=== PATIENT | male | born 1925 | race Caucasian/White ===

== ENCOUNTER 2016-11-13 13:09 | Observation (INO) | payer OTHER ==
[~2016-11-13] VITALS: Ht 170.2 cm; Wt 48.5 kg
--- NOTE | ~2016-11-13 | S ---
[facility] [place] [address] SURGICAL PATH RPT PROCEDURE Name: ARIADNA STEWART Room #: 444-P [facility] IN M.R.#: [id number] Admission: 11/13/16 Date of : [birth year] Discharge: 11/18/16 Report #: [id number] Path Case #: [id number] PATHOLOGY REPORT COLLECTION DATE: 11/14/2016 RECEIVED DATE: 11/14/2016 SUBMITTING PHYS: Dr. Gregor Rodriguez OTHER PHYS: Dr. Fred Chew SPECIMEN(S) RECEIVED: A.Liver bx x3 * * * * * * * * * * * * FINAL DIAGNOSIS: Liver, mass, needle core biopsy: - MODERATELY DIFFERENTIATED ADENOCARCINOMA. COMMENT: Examination shows an adenocarcinoma with a cribriform pattern. Multiple immunohistochemical stains are performed. (Block A1) CK7: non- reactive CK19: strongly reactive CK20: non-reactive CDX-2: non-reactive TTF-1: non-reactive within the tumor PSA: non-reactive PSAP: reactive PAX-8: reactive Villin: non- reactive CEA monoclonal: non-reactive Based on the immunohistochemical stains, a metastatic adenocarcinoma of prostatic origin cannot be excluded. The non-reactive immunohistochemical stains argue against a metastatic lung, colon and upper gastrointestinal tract origins. Cholangiocarcinoma as well as pancreatic adenocarcinoma usually are reactive to CK7, CK20 as well as monoclonal CEA. Therefore these are less likely; however are in the differential diagnosis for this malignancy. Clinical correlation is suggested. Co-review: Dr. Tolu Carmona Findings of this case are discussed with Dr. Amari Rodriguez at approximately 10:00 a.m. on 11/17/16. (IUV:mgr; 11/17/2016) PATHOLOGIST: Kelsy Valdez M.D. REPORT ELECTRONICALLY SIGNED BY: Kelsy Valdez M.D. [facility] [address] [place] [address] SURGICAL PATH RPT PROCEDURE Name: ARIADNA STEWART Room #: 444-P [facility] IN .R.#: [id number] Admission: 11/13/16 Date of : [birth year] Discharge: 11/18/16 Report #: [id number] Path Case #: [id number] DATE/TIME: 11/18/2016 15:09 * * * * * * * * * * * * GROSS PATHOLOGY: Received in formalin labeled "Ariadna Stewart, liver biopsy 3," are three distinct needle cores of white-allen to orange-10 soft tissue ranging from 1.4 to 2.0 cm in length, which are submitted entirely in cassette A1. (CAA; 11/15/2016) CLINICAL HISTORY: Weight loss, nausea, sore "tailbone", vomiting INITIAL CPT CODE(S): A; 81534, 24916, 39911, 54905, 37452, 45374, 73709, 43863, 30625, 14091, 08238 Professional services performed by [facility] at [facility] [address], [place] [address] Technical services performed by [facility] at [address] [place] [address], [address], [place] [address]. [facility] [address] [place] [address] PHONE: [phone] DIRECTOR: Mike Herrera M.D. * * * END OF REPORT * * *
[2016-11-13 13:10] VITALS: BP 108/68
[2016-11-13] MEDS ORDERED: ALEVE220 MG PO (13:37)
[2016-11-13 13:52] LABS: HEMATOCRIT 34.7 % (42.0-52.0); HEMOGLOBIN 11.5 gm/dL (14.0-18.0); MANUAL DIFF YES; MCH 28.9 pg (26.0-34.0); MCHC 33.1 g/dL (28.0-37.0); MCV 87.5 fL (80.0-100.0); PLATELET COUNT 440 thou/uL (150-400); RBC 3.96 mil/uL (4.50-6.00); RDW 16.2 % (10.5-14.5); WBC 6.7 thou/uL (4.0-11.0)
[2016-11-13 13:57] LABS: CALCIUM 9.2 mg/dL (8.5-10.1); CREATININE 1.6 mg/dL (0.7-1.3); POTASSIUM 3.7 mmol/L (3.5-5.1)
[2016-11-13 14:01] LABS: ALBUMIN 2.4 g/dL (3.4-5.0); TOTAL BILIRUBIN 0.5 mg/dL (<0.1-1.0); TOTAL PROTEIN 7.5 g/dL (6.4-8.2)
[2016-11-13 14:16] LABS: ABSOLUTE NEUTROPHILS 5.3 thou/uL (1.4-8.2); ANISOCYTOSIS 1+; TOTAL CELL COUNT 100
[2016-11-13 15:38] VITALS: BP 113/56
[2016-11-13 16:15] VITALS: BP 117/57
[2016-11-13] MEDS ORDERED: ONDANSETRON HCL4 M2 PO (16:52)
[2016-11-13] MEDS ORDERED: PROTONIX40 M1 PO (16:53)
[2016-11-13] MEDS ORDERED: MIRALAX17 GM PO (16:54)
[2016-11-13 19:14] VITALS: BP 105/51
[2016-11-14] VITALS (15 sets, daily range): BP systolic 105–124; BP diastolic 46–65
[2016-11-14 08:30] LABS: URINE BILIRUBIN NEGATIVE (Negative); URINE BLOOD NEGATIVE (Negative); URINE COLOR YELLOW; URINE GLUCOSE-RANDOM* NEGATIVE (Negative); URINE KETONES TRACE (Negative); URINE LEUKOCYTES-REFLEX NEGATIVE (Negative); URINE PROTEIN (DIPSTICK) TRACE (Negative); URINE UROBILINOGEN 0.2 E.U./dl (0.2-1.0)
[2016-11-14 08:32] LABS: INR 1.1; PROTIME 10.9 Seconds (9.3-11.4)
[2016-11-14 08:36] LABS: URINE CREATININE-RANDOM* 125.4 mg/dL
[2016-11-15 04:26] VITALS: BP 124/51
[2016-11-15 07:53] VITALS: BP 105/36
[2016-11-15 16:40] VITALS: BP 97/32
[2016-11-15 19:40] VITALS: BP 116/53
[2016-11-16 05:16] VITALS: BP 97/53
[2016-11-16 08:00] VITALS: BP 104/39
[2016-11-16 16:00] VITALS: BP 119/49
[2016-11-16 19:56] VITALS: BP 110/45
[2016-11-17 05:55] VITALS: BP 115/38
[2016-11-17 08:00] VITALS: BP 96/33
[2016-11-17 09:16] LABS: HEMATOCRIT 27.2 % (42.0-52.0); HEMOGLOBIN 9.2 gm/dL (14.0-18.0); MCH 29.5 pg (26.0-34.0); MCHC 33.8 g/dL (28.0-37.0); MCV 87.2 fL (80.0-100.0); PLATELET COUNT 318 thou/uL (150-400); RBC 3.12 mil/uL (4.50-6.00); RDW 16.5 % (10.5-14.5); WBC 7.2 thou/uL (4.0-11.0)
[2016-11-17 09:17] LABS: MANUAL DIFF YES
[2016-11-17 09:28] LABS: CALCIUM 8.4 mg/dL (8.5-10.1); POTASSIUM 3.3 mmol/L (3.5-5.1)
[2016-11-17 09:38] LABS: ABSOLUTE NEUTROPHILS 6.3 thou/uL (1.4-8.2); ANISOCYTOSIS 1+; TOTAL CELL COUNT 100
[2016-11-17 09:40] LABS: POLYCHROMASIA OCCASIONAL
[2016-11-17 16:00] VITALS: BP 109/46
[2016-11-17 20:04] VITALS: BP 108/44
[2016-11-18 08:35] VITALS: BP 118/51
[2016-11-18 12:32] VITALS: BP 118/51
== END 2016-11-18 12:54 | disposition hospice, home (50) ==
LOC: ER 13:09 → EROBS 15:08 → 4S 15:57 → EROBS 15:58 → 4S 18:30
PROVIDERS: Family Medicine; Internal Medicine Hematology & Oncology; Physician Assistant
PROC: 0FB03ZX Excision of Liver, Percutaneous Approach, Diagnostic (ICD-10-PCS; principal; 2016-11-14)
DX: R16.0 Hepatomegaly, not elsewhere classified (principal); N17.9 Acute kidney failure, unspecified; E43 Unspecified severe protein-calorie malnutrition; R64 Cachexia; R59.1 Generalized enlarged lymph nodes; R63.4 Abnormal weight loss; D64.9 Anemia, unspecified; E86.0 Dehydration; R11.0 Nausea; Z87.11 Personal history of peptic ulcer disease; Z72.89 Other problems related to lifestyle; Z87.891 Personal history of nicotine dependence